=== PATIENT | female | born 1950 | race Caucasian/White ===

== ENCOUNTER → 2017-09-04 | Outpatient (CLI) | payer OTHER | LOC: M.RAD 10:58 | DX: R07.1 Chest pain on breathing (principal); R05 Cough ==

== ENCOUNTER → 2017-09-09 | Outpatient (CLI) | payer OTHER, MEDICARE | LOC: M.RAD 08-18 15:11 | DX: Z12.31 Encounter for screening mammogram for malignant neoplasm of breast (principal); M81.0 Age-related osteoporosis without current pathological fracture; M85.88 Other specified disorders of bone density and structure, other site; Z78.0 Asymptomatic menopausal state ==

== ENCOUNTER → 2017-09-18 | Outpatient (CLI) | payer OTHER, MEDICARE | LOC: M.RAD 16:07 | DX: R05 Cough (principal) ==